=== PATIENT | female | born 1975 | race Caucasian/White ===

== ENCOUNTER 2017-06-22 15:34 | Observation (INO) ==
--- NOTE | 2017-06-22 19:33 | Emergency Department Note ---
Disposition Referrals: Carlitos Daniel MD [Primary Care Provider] - Forms: ED Satisfaction Letter General Adult HPI - General Chief complaint: ED Extremity Problem,Nontraumatic Stated complaint: Bilateral Legs Swollen and Painfull Time Seen by Provider: 06/22/17 19:10 Source: patient Limitations: no limitations - History of Present Illness Pain Scale: 9 - Related Data Allergies Allergy/AdvReac Type Severity Reaction Status Date / Time codeine AdvReac See Verified 06/22/17 16:28 Comments Past Medical History - Past Medical History Medical history: Reports: thyroid disease Psychiatric history: Reports: anxiety, depression - Social History Smoking Status: Never smoker Smokeless Tobacco Status: No Alcohol use: Reports: none Drug use: Reports: none Physical Exam - General Limitations: no limitations General appearance: alert Course Vital Signs Temperature 98.2 F 06/22/17 16:29 Pulse Rate 98 06/22/17 16:29 Respiratory Rate 20 06/22/17 16:29 Blood Pressure 137/84 06/22/17 16:29 O2 Sat by Pulse Oximetry 93 06/22/17 16:29 Temperature 98.2 F 06/22/17 16:29 Pulse Rate 98 06/22/17 16:29 Respiratory Rate 20 06/22/17 16:29 Blood Pressure 137/84 06/22/17 16:29 O2 Sat by Pulse Oximetry 93 06/22/17 16:29 Oxygen Delivery Oxygen Delivery Room Air
[2017-06-22 19:47] LABS: Basophils % 0.8 %; Eosinophils # 0.1 K/mcL (0.0-0.6); Hemoglobin 18.4 g/dL (11.5-15.4); Immature Granulocytes % 0.8 % (0-4); Immature Platelets 3.7 % (1.1-6.1); Lymphocytes # 1.2 K/mcL (0.6-4.6); Lymphocytes % 23.5 %; Mean Corpuscular HGB Conc 30.6 g/dL (31.6-35.5); Mean Corpuscular Hemoglobin 27.4 pg (28.0-33.3); Mean Corpuscular Volume 89.7 fL (83.0-100.0); Mean Platelet Volume 9.9 fL (9.4-12.4); Monocytes # 0.4 K/mcL (0.0-1.3); Monocytes % 7.4 %; Neutrophils # 3.3 K/mcL (1.6-8.9); Platelet Count 107 K/mcL (140-400); Red Blood Count 6.71 M/mcL (3.82-4.97); Red Cell Distribution Width 18.9 % (11.5-14.5); Segmented Neutrophils % 66.5 %
[2017-06-22 19:52] LABS: Hematocrit 60.2 % (35.3-44.9)
[2017-06-22 19:59] LABS: BUN/Creatinine Ratio 11 (6-26); Blood Urea Nitrogen 8 mg/dL (7-20); Calcium 9.2 mg/dL (8.6-10.8); Carbon Dioxide 28 mEq/L (19-29); Chloride 97 mEq/L (98-109); Glucose 164 mg/dL (70-99); Osmolality,Calculated 284 (280-300); Potassium 3.5 mEq/L (3.5-4.5); Sodium 136 mEq/L (136-145); eGFR For African Americans > 60 (> 60); eGFR For Non-African Americans > 60 (> 60)
[2017-06-22 20:05] LABS: Anisocytosis 1+ (Not Present); Macrocytosis Present (Not Present)
[2017-06-22 20:06] LABS: Large Platelets Present (Not Present); Platelet Estimate Decreased (Normal); Polychromasia 2+ (Not Present)
[2017-06-22] MEDS ORDERED: Vancomycin 1,500 MG in D5% in Water 250 ML IVPB ONE (20:23)
--- NOTE | 2017-06-22 22:32 | Emergency Department Note ---
Disposition Clinical Impression: Edema Qualifiers: Edema type: localized Qualified Code(s): R60.0 - Localized edema Disposition: Admitted As Inpatient Condition: Good Referrals: Carlitos Daniel MD [Primary Care Provider] - Forms: ED Satisfaction Letter General Adult HPI - General Chief complaint: ED Extremity Problem,Nontraumatic Stated complaint: Bilateral Legs Swollen and Painfull Time Seen by Provider: 06/22/17 19:10 Source: patient Limitations: no limitations Nursing Notes Reviewed: Yes Vital Signs Reviewed: Yes - History of Present Illness HPI Narrative: This is a 41-year-old female who presents with concern for lower extremity edema. She admits that she had a negative cardiac workup several weeks ago but now has worsening edema with redness. The redness started 2 days ago. She admits that she has increasing warmth to the touch. She has no lower extremity trauma. She has no history of renal insufficiency. She has no chest pain. Pain Scale: 9 - Related Data Allergies Allergy/AdvReac Type Severity Reaction Status Date / Time codeine AdvReac See Verified 06/22/17 16:28 Comments All systems ED: reviewed and negative except as stated. Past Medical History - Past Medical History Medical history: Reports: thyroid disease Psychiatric history: Reports: anxiety, depression - Social History Smoking Status: Never smoker Smokeless Tobacco Status: No Alcohol use: Reports: none Drug use: Reports: none Physical Exam Significant +2 peripheral edema on the lower extremities with erythema as well as warmth extending to the knee. - General Limitations: no limitations General appearance: alert - Head Head exam: atraumatic - Eye Eye exam: Present: normal appearance - ENT ENT exam: normal exam - Neck Neck exam: Present: normal inspection - Chest Chest inspection: Present: normal inspection - Respiratory Respiratory exam: Present: normal lung sounds bilaterally - Cardiovascular Cardiovascular exam: Present: regular rate, normal rhythm - Abdominal Exam Abdominal exam: Present: soft, Non-Tender - Expanded Lower Extremity Exam Hip/Pelvis exam: Present: normal inspection Upper leg exam: Present: normal inspection, full ROM Neurovascular/Tendon exam: Present: normal capillary refill. Absent: pulse deficit Gait: observed and normal - Back Exam Back exam: Present: normal inspection, full ROM - Neurological Exam Neurological exam: Present: alert, oriented X3, CN II-XII intact - Psychiatric Psychiatric exam: Present: normal affect, normal mood - Skin Skin exam: Present: warm, dry Course Vital Signs Temperature 98.2 F 06/22/17 16:29 Pulse Rate 98 06/22/17 16:29 Respiratory Rate 20 06/22/17 16:29 Blood Pressure 137/84 06/22/17 16:29 O2 Sat by Pulse Oximetry 93 06/22/17 16:29 Temperature 98.2 F 06/22/17 16:29 Pulse Rate 98 06/22/17 16:29 Respiratory Rate 20 06/22/17 16:29 Blood Pressure 137/84 06/22/17 16:29 O2 Sat by Pulse Oximetry 93 06/22/17 16:29 Oxygen Delivery Oxygen Delivery Room Air Medical Decision Making - MDM Narrative Medical decision making narrative: Duplex of the lower extremities show no evidence of DVT. She has no leukocytosis. She is afebrile. Her legs are concerning for possible cellulitis. I would empirically initiated therapy with vancomycin at this time. She has no systemic signs of inflammatory response syndrome. I would also evaluate her for possible PE. She does have pulmonary edema on chest x- ray however normal pro BNP and creatinine. I would like to exclude PE as a cause for these abnormal chest x-ray findings. The patient will be admitted to the hospital for further evaluation of cellulitis versus heart failure versus PE. CT scan shows possible chronic pulmonary embolism I will start heparin at this time pending more definitive imaging as inpatient. Continue treatment for possible cellulitis. - Medical Records Medical records reviewed: Yes I reviewed the patient's medical records. - Lab Data Lab results reviewed: Yes I reviewed the patient's lab results. Result diagrams: 06/22/17 19:34 06/22/17 19:34 Lab Results 06/22/17 06/22/17 06/22/17 Range/Units 19:34 19:34 19:34 WBC 5.0 (4.3-11.1) K/mcL RBC 6.71 H (3.82-4.97) M/mcL Hgb 18.4 H (11.5-15.4) g/dL Hct 60.2 H (35.3-44.9) % MCV 89.7 (83.0-100.0) fL MCH 27.4 L (28.0-33.3) pg MCHC 30.6 L (31.6-35.5) g/dL RDW 18.9 H (11.5-14.5) % Plt Count 107 L (140-400) K/mcL MPV 9.9 (9.4-12.4) fL Immature Gran % 0.8 (0-4) % Seg Neutrophils % 66.5 % Lymphocytes % 23.5 % Monocytes % 7.4 % Eosinophils % 1.0 % Basophils % 0.8 % Neutrophils # 3.3 (1.6-8.9) K/mcL Lymphocytes # 1.2 (0.6-4.6) K/mcL Monocytes # 0.4 (0.0-1.3) K/mcL Eosinophils # 0.1 (0.0-0.6) K/mcL Basophils # 0.0 (0.0-0.2) K/mcL Platelet Estimate Decreased L (Normal) Large Platelets Present A (Not Present) Immature Plt Fraction 3.7 (1.1-6.1) % Polychromasia 2+ A (Not Present) Anisocytosis 1+ A (Not Present) Macrocytosis Present A (Not Present) Sodium 136 (136-145) mEq/L Potassium 3.5 (3.5-4.5) mEq/L Chloride 97 L (98-109) mEq/L Carbon Dioxide 28 (19-29) mEq/L BUN 8 (7-20) mg/dL Creatinine 0.71 (0.57-1.11) mg/dL Est GFR ( Amer) > 60 (> 60) Est GFR (Non-Af Amer) > 60 (> 60) BUN/Creatinine Ratio 11 (6-26) Glucose 164 H (70-99) mg/dL Calculated Osmolality 284 (280-300) Lactic Acid 1.3 (0.5-2.2) mmol/L Calcium 9.2 (8.6-10.8) mg/dL Troponin I (0-0.03) ng/mL B-Natriuretic Peptide (0-100) pg/mL 06/22/17 06/22/17 Range/Units 19:34 19:34 WBC (4.3-11.1) K/mcL RBC (3.82-4.97) M/mcL Hgb (11.5-15.4) g/dL Hct (35.3-44.9) % MCV (83.0-100.0) fL MCH (28.0-33.3) pg MCHC (31.6-35.5) g/dL RDW (11.5-14.5) % Plt Count (140-400) K/mcL MPV (9.4-12.4) fL Immature Gran % (0-4) % Seg Neutrophils % % Lymphocytes % % Monocytes % % Eosinophils % % Basophils % % Neutrophils # (1.6-8.9) K/mcL Lymphocytes # (0.6-4.6) K/mcL Monocytes # (0.0-1.3) K/mcL Eosinophils # (0.0-0.6) K/mcL Basophils # (0.0-0.2) K/mcL Platelet Estimate (Normal) Large Platelets (Not Present) Immature Plt Fraction (1.1-6.1) % Polychromasia (Not Present) Anisocytosis (Not Present) Macrocytosis (Not Present) Sodium (136-145) mEq/L Potassium (3.5-4.5) mEq/L Chloride (98-109) mEq/L Carbon Dioxide (19-29) mEq/L BUN (7-20) mg/dL Creatinine (0.57-1.11) mg/dL Est GFR ( Amer) (> 60) Est GFR (Non-Af Amer) (> 60) BUN/Creatinine Ratio (6-26) Glucose (70-99) mg/dL Calculated Osmolality (280-300) Lactic Acid (0.5-2.2) mmol/L Calcium (8.6-10.8) mg/dL Troponin I 0.00 (0-0.03) ng/mL B-Natriuretic Peptide 22 (0-100) pg/mL
[2017-06-22] MEDS ORDERED: *HR* Heparin 5,000 UNIT/ML VIAL IVP PRN ×2 (22:53)
[2017-06-22] MEDS ORDERED: *HR* Heparin 5,000 UNIT/ML VIAL IVP ONE (22:53)
[2017-06-23 00:33] LABS: INR 1.3
[2017-06-23 00:36] LABS: Activated Partial Thrombo Time 27.9 Seconds (26.0-36.0)
[2017-06-23 00:48] LABS: Hemoglobin 17.7 g/dL (11.5-15.4); Mean Corpuscular HGB Conc 30.8 g/dL (31.6-35.5); Mean Corpuscular Hemoglobin 27.3 pg (28.0-33.3); Mean Corpuscular Volume 88.4 fL (83.0-100.0); Mean Platelet Volume 9.5 fL (9.4-12.4); Platelet Count 110 K/mcL (140-400); Red Blood Count 6.49 M/mcL (3.82-4.97); Red Cell Distribution Width 18.8 % (11.5-14.5)
[2017-06-23 00:49] LABS: Hematocrit 57.4 % (35.3-44.9)
[2017-06-23] MEDS ORDERED: 0.9 % Sodium Chloride 1,000 ML ONE (01:24)
[2017-06-23] MEDS: Heparin 25,000 UNIT/500 ML D5W 25,000 UNIT/500 ML MLS IVC SCH ×2 (01:37→12:59)
[2017-06-23] MEDS ORDERED: Acetaminophen 325 MG TABLET PO PRN (06:47)
[2017-06-23] MEDS ORDERED: Naloxone 0.4 MG/ML INJ IVP PRN (06:47)
[2017-06-23] MEDS ORDERED: *HR* Morphine 2 MG/ML SYRINGE IVP PRN (06:47)
[2017-06-23] MEDS ORDERED: Ondansetron 4 MG/2 ML VIAL IVP PRN (06:47)
[2017-06-23 07:48] LABS: Chol/HDL Ratio 6.6 (0-4.9); Magnesium 1.6 mg/dL (1.6-2.6)
[2017-06-23 07:49] LABS: BUN/Creatinine Ratio 10 (6-26); Blood Urea Nitrogen 7 mg/dL (7-20); Calcium 8.8 mg/dL (8.6-10.8); Carbon Dioxide 28 mEq/L (19-29); Chloride 97 mEq/L (98-109); Glucose 170 mg/dL (70-99); Osmolality,Calculated 288 (280-300); Potassium 3.5 mEq/L (3.5-4.5); Sodium 138 mEq/L (136-145); eGFR For African Americans > 60 (> 60); eGFR For Non-African Americans > 60 (> 60)
[2017-06-23] MEDS ORDERED: Albuterol Neb 0.63 MG/3 ML VIAL IH PRN (08:00)
[2017-06-23] MEDS ORDERED: Furosemide 40 MG/4 ML VIAL IVP SCH ×3 (08:00→17:00)
[2017-06-23] MEDS: Folic Acid 1 MG TABLET PO SCH (08:44)
[2017-06-23] MEDS ORDERED: Furosemide 40 MG TABLET PO SCH (09:00)
[2017-06-23] MEDS ORDERED: BREO ELLIPTA IH SCH (09:00)
[2017-06-23] MEDS ORDERED: (Biotin [Biotin] 5,000 MCG) PO SCH (09:00)
--- NOTE | 2017-06-23 09:34 | Internal Med History&Physical ---
Date of Encounter: 06/23/17 Time of Encounter: 09:10 Assessment and Plan (1) SIRS (systemic inflammatory response syndrome) Current visit: Yes Status: Acute Will admit the pt into Tele Meet SIRS criteria with low grade temp 100.0, elevated WBC, source of inf as cellulites started on empirical abx Ancef not a high risk for MRSA inf cont close monitoring (2) Cellulitis of leg Current visit: Yes Status: Acute see above Qualifiers: Qualified Code(s): L03.119 - Cellulitis of unspecified part of limb (3) Bilateral lower extremity edema Current visit: Yes Status: Acute ruled out DVT Venous doppler negative Mostly dependent edema and cellulities induced too BNP - WNL -- however with her CXR findings and b/l LE edema -- concern for CHF exacerbation too Will obtain her recent 2 D Echo from PCP office No need to repeat another Echo now cont gentle diuresis (4) Chronic pulmonary embolism Current visit: Yes Status: Acute does not look like acute she had symptoms for almost 2 months looks non provocative may need 3-6 months of rx cont heparin gtt for now Talked to pharmacy to check her insurance see if she qualifies for Eliquis / Xarelto will get 2 D Echo from PCP office Qualifiers: Qualified Code(s): I27.82 - Chronic pulmonary embolism (5) Obesities, morbid Current visit: Yes Status: Acute counseled to loose weight (6) Mild intermittent asthma Current visit: Yes Status: Chronic stable.. not in exacerbation Qualifiers: Qualified Code(s): J45.20 - Mild intermittent asthma, uncomplicated (7) Hypothyroid Current visit: Yes Status: Chronic resumed home meds Qualifiers: Hypothyroidism type: acquired Qualified Code(s): E03.9 - Hypothyroidism, unspecified (8) DONYA (obstructive sleep apnea) Current visit: Yes Status: Acute counseled to go for out pt sleep study Internal Medicine - H&P: HPI Chief complaint: b/l LE swelling and SOB Admitted From: Emergency Dept Plans for Post Hospital Care: Home History of present illness: This is a 41-year-old female with PMH of DONYA, Morbid obesity, HTN, Asthma, hypothyroidism pt who has been having SOB for a couple of months, for which shed followed with PCP and [employer] as an out pt. She did mention having a full cardiac work up 2 months ago including 2 D Echo, which were normal. Now she presented to out ER with concern for lower extremity edema and erythema started 2 days ago. She admits that she has increasing warmth to the touch. She has no lower extremity trauma. She has no history of renal insufficiency. She has no chest pain. Past Med Surg Social Fam HX - Past Medical History Medical history: asthma, thyroid disease, other Psychiatric history: anxiety, depression - Past Surgical History Surgical History: - Social History Smoking Status: Former smoker Smokeless Tobacco Status: No Alcohol use: none Drug use: none - Family History Mother Age: 70 Living Status: Still Living Hx Family Cancer: Yes Hx Family Endocrine Disorder: Yes (Thyroid) Father Age: 75 Living Status: Still Living Hx Family Cardiac Disorders: Yes Hx Family Endocrine Disorder: Yes (DM) - Additional Family History Additional family history: Mother had PE after Rt shoulder repair Internal Medicine - H&P: Meds Albuterol Sulfate [Ventolin Hfa] 1 puff IH Q6H PRN 06/23/17 [History] Biotin 5,000 mcg PO DAILY 06/23/17 [History] Ergocalciferol (VITAMIN D2) [Vitamin D2] 50,000 unit PO QWEEK 06/23/17 [History] Ferrous Sulfate [Iron] 325 mg PO TID 06/23/17 [History] Fluticasone/Vilanterol [Breo Ellipta 200-25 Mcg INH] 1 puff IH DAILY 06/23/17 [ History] Folic Acid 400 mcg PO DAILY 06/23/17 [History] Furosemide [Lasix] 40 mg PO DAILY 06/23/17 [History] Levothyroxine Sodium [Synthroid] 200 mcg PO DAILY 06/23/17 [History] Multivitamin [One Daily Essential] PO DAILY 06/23/17 [History] 3 Allergy/AdvReac Type Severity Reaction Status Date / Time codeine AdvReac See Verified 06/22/17 16:28 Comments All Systems PM: A 10-system review of systems was performed and is negative for pertinent findings except as documented above in the HPI. Review of systems: Reviwed all the systems everything is benign except the systems and symptoms I mentioned in HPI - Constitutional Vitals: Temp Pulse Resp BP Pulse Ox 98.4 F 105 20 136/83 92 06/23/17 07:05 06/23/17 07:05 06/23/17 07:05 06/23/17 07:05 06/23/17 07:05 General appearance: Present: A&O X 3, morbidly obese, no acute distress, answers questions appropriately - Head Head exam: Present: atraumatic, normal inspection - Respiratory Respiratory exam: Present: decreased breath sounds. Absent: rales, respiratory distress, rhonchi, wheezes - Cardiovascular Cardiovascular exam: Present: RRR, +S1, +S2. Absent: systolic murmur - GI/Abdominal GI/Abdominal exam: Present: soft, no peritoneal signs. Absent: distended, tenderness - Extremities Exam Extremities exam: Present: pedal edema (2+). Absent: calf tenderness, tenderness Additional comments: Erythema extending from ankle to proximal 1/3 of both legs .. Warm to touch.. Non tender. No open wounds / ulcers - Back Exam Back exam: Absent: CVA tenderness (L), CVA tenderness (R) - Neurological Exam Neurological exam: Present: alert, oriented X3 - Psychiatric Psychiatric exam: Present: normal affect, normal mood Internal Med - H&P Results - Labs CBC & Chem 7: 06/23/17 00:21 06/23/17 07:03 Labs: Short CBC 06/23/17 Range/Units 00:21 WBC 5.4 (4.3-11.1) K/mcL Hgb 17.7 H (11.5-15.4) g/dL Hct 57.4 H (35.3-44.9) % Plt Count 110 L (140-400) K/mcL BMP 06/23/17 07:03 Sodium 138 Potassium 3.5 Chloride 97 L Carbon Dioxide 28 BUN 7 Creatinine 0.72 Glucose 170 H Calcium 8.8 Cardiac Enzymes 06/23/17 Range/Units 07:03 Troponin I 0.00 (0-0.03) ng/mL
[2017-06-23] MEDS: ceFAZolin 1,000 MG in D5% in Water (Mini-Bag+) 100 ML IVPB SCH ×2 (10:34→16:46)
[2017-06-23] MEDS ORDERED: *HR* Rivaroxaban 15 MG TABLET PO SCH (15:25)
[2017-06-23] MEDS ORDERED: *HR* Dextrose 50 % in Water (Syg) 50 ML SYRINGE IVP PRN (15:48)
[2017-06-23] MEDS ORDERED: Dextrose Gel 15 GM PO PRN ×2 (15:48)
[2017-06-23] MEDS ORDERED: D5% in Water 1,000 ML IVC PRN (15:48)
--- NOTE | 2017-06-23 15:56 | Pulmonology Consult Note ---
Date of Encounter: 06/23/17 Time of Encounter: 15:51 Assessment and Plan (1) Chronic respiratory failure with hypoxia Current Visit: Yes Status: Acute I suspect this is related to chronic untreated obstructive sleep apnea complicated by obesity hypoventilation syndrome and asthma. Recommend obtaining arterial blood gas on room air as well as echocardiogram is ordered hopefully this can be done with bubble study. Supplemental oxygen at all times to keep saturation greater than 88% (2) Pulmonary hypertension Current Visit: Yes Status: Acute There is radiographic evidence of pulmonary hypertension recommend screening echocardiogram as next step in this evaluation. I suspect these findings are most likely related to WHO group 3 disease that is owing to chronic hypoxia related to pulmonary cause. She is at increased risk for developing group 1 disease that is pulmonary arteriolar hypertension. Not exclude possibility group for disease chronic thromboembolic pulmonary hypertension although no clear evidence at this time. I will order a VQ scan to further eliminate possibility of chronic thromboembolic pulmonary hypertension (3) Dyspnea Current Visit: Yes Status: Acute Is multifactorial and related to above findings Qualifiers: Dyspnea type: unspecified Qualified Code(s): R06.00 - Dyspnea, unspecified (4) DONYA (obstructive sleep apnea) Current Visit: Yes Status: Acute He is set up to start positive airway pressure therapy with her next week and I encouraged her to follow up with this appointment it is reasonable to start empiric CPAP at night while inpatient avoid sedatives at bedtime and IV narcotics/anxiolytics as possible (5) Mild intermittent asthma Current Visit: Yes Status: Chronic Does not have acute flare of asthma chronic treatment which is appropriately managed at present I would continue bronchodilators in the form of albuterol on a as needed basis and she can return to taking her metered-dose inhaler of inhaled corticosteroid and long-acting beta agonists at the time of discharge Qualifiers: Asthma complication type: uncomplicated Qualified Code(s): J45.20 - Mild intermittent asthma, uncomplicated (6) Obesity with alveolar hypoventilation Current Visit: Yes Status: Acute She does have evidence of chronic CO2 retention this should improve with use of positive airway pressure and hopefully weight loss on a long-term strategy basis Qualifiers: Qualified Code(s): E66.2 - Morbid (severe) obesity with alveolar hypoventilation (7) Polycythemia Current Visit: Yes Status: Acute I suspect this is secondary polycythemia related to chronic untreated hypoxemia. This is not correct with treatment of her underlying hypoxemia that she would need follow-up with hematology for further evaluation (8) Venous thromboembolism (VTE) not present on admission Current Visit: Yes Status: Acute I do not see a clear diagnosis of acute or chronic thromboembolic disease and as such I do not recommend empiric use of anticoagulation I discussed my observation and recommendations directly with the primary medicine attending Dr. Solo. If Further concern exist about lower extremity DVT recommended obtaining additional imaging studies in the form of a lower extremity duplex History of Present Illness Consult date: 06/23/17 Requesting physician: Rogelio Solo Reason for consult: dyspnea, pulmonary embolism Chief complaint: Shortness of Breath History of present illness: This is a pleasant 41-year-old woman with past medical history of super morbid obesity former smoker who quit 10 years ago about a pack a day for 15 years mild persistent asthma treated with metered-dose inhalers recent diagnosis of obstructive sleep apnea but has not started CPAP therapy presented with worsening shortness of breath lower extremity edema and erythema along with redness and pain. She has been complaining of increased shortness of breath worse over the last couple of months and on admission a CT angiogram of her chest was performed which was not suggestive of acute PE there is some findings that were consistent with mosaic attenuation and a small lung nodule. She had a borderline enlarged pulmonary artery which can be seen in pulmonary arteriolar hypertension and some of the changes on the CAT scan at least from initial radiologist's interpretation may have suggested chronic thromboembolic pulmonary hypertension and thus the patient was started empirically on anticoagulation there is no mention that the patient has ever had acute PE or chronic VTE of any form and recently had a lower STEMI duplex prior to ut 2 weeks ago which was negative for DVT. As part of evaluation over the last 2 months she has been seen by cardiology at outside hospital and undergone a cardiac stress test which was negative for inducible ischemia she was noted by cardiology at that time to need oxygen and was started on supplement oxygen by an outside hospital area development manager at the same time he ordered a sleep study. Apparently at the sleep Center that was performed showed that she desaturated into the 40s during sleep although she is not started positive airway pressure therapy as of yet that is is scheduled to be completed within the next week. She has worked in clerical jobs; she does scarpbooking for a hobbies and has no industrial or environmental exposures has never taken [id number] dietary supplements and does not use alcohol excessively denies illicit drug Past Med Surg Social Fam HX - Past Medical History Medical history: asthma, thyroid disease, other Psychiatric history: anxiety, depression - Past Surgical History Surgical History: - Social History Smoking Status: Former smoker Smokeless Tobacco Status: No Alcohol use: none Drug use: none - Family History Mother Age: 70 Living Status: Still Living Hx Family Cancer: Yes Hx Family Endocrine Disorder: Yes (Thyroid) Father Age: 75 Living Status: Still Living Hx Family Cardiac Disorders: Yes Hx Family Endocrine Disorder: Yes (DM) Medications and Allergies Albuterol Sulfate [Ventolin Hfa] 1 puff IH Q6H PRN 06/23/17 [History] Biotin 5,000 mcg PO DAILY 06/23/17 [History] Ergocalciferol (VITAMIN D2) [Vitamin D2] 50,000 unit PO QWEEK 06/23/17 [History] Ferrous Sulfate [Iron] 325 mg PO TID 06/23/17 [History] Fluticasone/Vilanterol [Breo Ellipta 200-25 Mcg INH] 1 puff IH DAILY 06/23/17 [ History] Folic Acid 400 mcg PO DAILY 06/23/17 [History] Furosemide [Lasix] 40 mg PO DAILY 06/23/17 [History] Levothyroxine Sodium [Synthroid] 200 mcg PO DAILY 06/23/17 [History] Multivitamin [One Daily Essential] PO DAILY 06/23/17 [History] 3 Allergy/AdvReac Type Severity Reaction Status Date / Time codeine AdvReac See Verified 06/22/17 16:28 Comments All Systems: A 10-system review of systems was performed and is negative for pertinent findings except as documented above in the HPI. Physical Examination Vital Signs: Vital Signs, Last 4 Hours Temp Pulse Resp BP Pulse Ox 06/23/17 15:39 98.4 F 93 20 117/75 92 General appearance: no acute distress Eyes: nonicteric ENT: oropharynx moist Neck: supple Auscultation: bilateral: clear Cardiovascular: regular rate and rhythm Gastrointestinal: normoactive bowel sounds Integumentary: erythema, cellulitis Extremities: no edema, no clubbing, pink and warm Musculoskeletal: no deformities normal mental status, non-focal exam, pupils equal and round anxious Results - Laboratory Findings CBC and BMP: 06/23/17 00:21 06/23/17 07:03 PT/INR, D-dimer PT 14.0 Seconds (9.4-12.1) H 06/23/17 00:21 Abnormal lab findings: Abnormal lab results RBC 6.49 M/mcL (3.82-4.97) H 06/23/17 00:21 Hgb 17.7 g/dL (11.5-15.4) H 06/23/17 00:21 Hct 57.4 % (35.3-44.9) H 06/23/17 00:21 MCH 27.3 pg (28.0-33.3) L 06/23/17 00:21 MCHC 30.8 g/dL (31.6-35.5) L 06/23/17 00:21 RDW 18.8 % (11.5-14.5) H 06/23/17 00:21 Plt Count 110 K/mcL (140-400) L 06/23/17 00:21 Platelet Estimate Decreased (Normal) L 06/22/17 19:34 Large Platelets Present (Not Present) A 06/22/17 19:34 Polychromasia 2+ (Not Present) A 06/22/17 19:34 Anisocytosis 1+ (Not Present) A 06/22/17 19:34 Macrocytosis Present (Not Present) A 06/22/17 19:34 PT 14.0 Seconds (9.4-12.1) H 06/23/17 00:21 APTT 67.1 Seconds (26.0-36.0) H D 06/23/17 09:10 Chloride 97 mEq/L (98-109) L 06/23/17 07:03 Glucose 170 mg/dL (70-99) H 06/23/17 07:03 HDL Cholesterol 19 mg/dL (40-59) L 06/23/17 07:03 Cholesterol/HDL Ratio 6.6 (0-4.9) H 06/23/17 07:03 - Diagnostic Findings Chest x-ray: report reviewed, image reviewed CT scan - chest: report reviewed, image reviewed - Clinical Findings Intake & Output: Intake & Output 06/22/17 06/23/17 06/23/17 23:59 07:59 15:59 Intake Total 980.0 / 980.0 Balance 980.0 / 980.0 Consult Discharge Plan - Plan Referrals: Carlitos Daniel MD [Primary Care Provider] -
[2017-06-23] MEDS ORDERED: Insulin LISPRO 300 UNITS/3 ML VIAL SQ SCH ×2 (16:30)
[2017-06-23] MEDS: *HR* Rivaroxaban 15 MG TABLET PO SCH (16:48)
[2017-06-23] MEDS: Insulin LISPRO 300 UNITS/3 ML VIAL SQ SCH ×2 (16:48→20:36)
[2017-06-23 17:18] LABS: ABG Base Excess 10.3 mEq/L (-2.0 to 3.0); ABG HCO3 37 mEq/L (21-27); ABG Oxygen Saturation 87 % (95-98); ABG PCO2 55 mmHg (35-45); ABG PH 7.44 pH Units (7.32-7.45); ABG PO2 51 mmHg (85-104); ABG TCO2 39.1 mEq/L (20-26)
[2017-06-23 17:28] LABS: Blood Gas FiO2 21 %
[2017-06-23] MEDS ORDERED: Perflutren Lipid Microsphere 1.3 ML in 0.9 % Sodium Chloride 8.7 ML IVP ONE (17:54)
[2017-06-23] MEDS ORDERED: Famotidine 20 MG/2 ML VIAL IVP SCH (18:00)
--- NOTE | 2017-06-23 18:23 | Electrocardiograph Report ---
[address] [place], [place] [address] Test Date: 2017-06-22 Pat Name: Debra López Department: 103 Room: 2A43 Gender: F Design [employer]inter [employer]: : 1975 Requested By: Dion Mendoza Order Number: [id number] Reading MD: Dominique Coughlin Measurements Intervals [place] Rate: 103 P: 39 CO: 158 QRS: 250 QRSD: 90 T: 31 QT: 335 QTc: 395 Interpretive Statements SINUS TACHYCARDIA NONSPECIFIC ST-T ABNORMALITIES Electronically Signed On 06-23-2017 18:21:56 EDT by Dominique Coughlin
[2017-06-23] MEDS: Budesonide/Formoterol 160/4.5 MDI IH SCH (22:19)
[2017-06-24] MEDS: ceFAZolin 1,000 MG in D5% in Water (Mini-Bag+) 100 ML IVPB SCH ×3 (01:11→17:07)
[2017-06-24] MEDS: *HR* Rivaroxaban 15 MG TABLET PO SCH ×2 (05:59→17:07)
[2017-06-24 06:46] LABS: BUN/Creatinine Ratio 11 (6-26); Blood Urea Nitrogen 8 mg/dL (7-20); Calcium 8.8 mg/dL (8.6-10.8); Carbon Dioxide 31 mEq/L (19-29); Chloride 94 mEq/L (98-109); Glucose 162 mg/dL (70-99); Magnesium 1.8 mg/dL (1.6-2.6); Osmolality,Calculated 286 (280-300); Potassium 3.8 mEq/L (3.5-4.5); Sodium 137 mEq/L (136-145); eGFR For African Americans > 60 (> 60); eGFR For Non-African Americans > 60 (> 60)
[2017-06-24 07:02] LABS: Basophils % 0.8 %; Eosinophils # 0.2 K/mcL (0.0-0.6); Eosinophils % 3.7 %; Hemoglobin 17.6 g/dL (11.5-15.4); Immature Granulocytes % 0.6 % (0-4); Lymphocytes # 0.8 K/mcL (0.6-4.6); Lymphocytes % 16.4 %; Mean Corpuscular HGB Conc 29.9 g/dL (31.6-35.5); Mean Corpuscular Hemoglobin 27.1 pg (28.0-33.3); Mean Corpuscular Volume 90.8 fL (83.0-100.0); Mean Platelet Volume 9.7 fL (9.4-12.4); Monocytes # 0.4 K/mcL (0.0-1.3); Neutrophils # 3.6 K/mcL (1.6-8.9); Platelet Count 111 K/mcL (140-400); Red Blood Count 6.49 M/mcL (3.82-4.97); Red Cell Distribution Width 19.3 % (11.5-14.5); Segmented Neutrophils % 70.5 %
--- NOTE | 2017-06-24 07:11 | Venous Imaging Report ---
LE Venous Duplex Patient Name:Debra López Order Number:[id number] Procedure Date:06/22/2017 Date:1975Age:41 yrs Gender:Female Location:[facility] ED Room #: ER15 Picker / Packer:Deedee Gonzales, MIRTHA, RVT Referring MD:Brendan Bullard DO Reading MD:Arie Hernández MD Primary Indications:Swelling of limb Secondary Indications: Impressions: Bilateral lower extremity: normal superficial and deep exam. Recommendations: Preliminary given to Dr Bullard in ED. Findings Venous Duplex Results: Right: Venous imaging of the lower extremity reveals full patency and normal vessel compressibility of the right distal iliac, right common femoral, right superficial femoral, right popliteal, right posterior tibial, right peroneal, right great saphenous and right lesser saphenous. Doppler signals in the evaluated veins were normal. Left: Venous imaging of the lower extremity reveals full patency and normal vessel compressibility of the left distal iliac, left common femoral, left superficial femoral, left popliteal, left posterior tibial, left peroneal, left great saphenous and left lesser saphenous. Doppler signals in the evaluated veins were normal. Prior Study: No prior study available for comparison. Lower Extremity Venous Duplex Side Vein Compress Spontaneous Flow Augment Diameter (cm) Depth (cm) Right Distal Iliac Normal Yes Phasic Yes Right Common Femoral Normal Yes Phasic Yes Right Superficial Femoral Normal Yes Phasic Yes Right Popliteal Normal Yes Phasic Yes Right Posterior Tibial Normal Yes Phasic Yes Right Peroneal Normal Yes Phasic Yes Right Great Saphenous Normal Yes Phasic Yes Right Lesser Saphenous Normal Yes Phasic Yes Left Distal Iliac Normal Yes Phasic Yes Left Common Femoral Normal Yes Phasic Yes Left Superficial Femoral Normal Yes Phasic Yes Left Popliteal Normal Yes Phasic Yes Left Posterior Tibial Normal Yes Phasic Yes Left Peroneal Normal Yes Phasic Yes Left Great Saphenous Normal Yes Phasic Yes Left Lesser Saphenous Normal Yes Phasic Yes Upper Extremity Venous Duplex Side Vein Compress Spontaneous Flow Augment Right Jugular Normal Yes Phasic Yes Right Subclavian Normal Yes Phasic Yes Right Axillary Normal Yes Phasic Yes Right Brachial Normal Yes Phasic Yes Right Cephalic Normal Yes Phasic Yes Right Basilic Normal Yes Phasic Yes Right Radial Normal Yes Phasic Yes Right Ulnar Normal Yes Phasic Yes Left Jugular Normal Yes Phasic Yes Left Subclavian Normal Yes Phasic Yes Left Axillary Normal Yes Phasic Yes Left Brachial Normal Yes Phasic Yes Left Cephalic Normal Yes Phasic Yes Left Basilic Normal Yes Phasic Yes Left Radial Normal Yes Phasic Yes Left Ulnar Normal Yes Phasic Yes Updated by Arie Hernández MD on 06/24/2017 7:03:20 AM electronically signed on 06/24/2017 7:03:31 AM with status of Final
[2017-06-24 08:01] LABS: Hematocrit 58.9 % (35.3-44.9)
[2017-06-24] MEDS: Folic Acid 1 MG TABLET PO SCH (08:10)
[2017-06-24] MEDS ORDERED: Furosemide 40 MG/4 ML VIAL IVP SCH (08:10)
[2017-06-24] MEDS: Insulin LISPRO 300 UNITS/3 ML VIAL SQ SCH ×4 (08:11→21:07)
--- NOTE | 2017-06-24 08:14 | Internal Med Progress Note ---
<Edwin Riddle - Last Filed: 06/24/17 16:16> Date of Encounter: 06/24/17 Time of Encounter: 08:11 - Assessment and plan (1) Chronic respiratory failure with hypoxia Current Visit: Yes Status: Acute Assessment and plan: Related to underlying pulmonary hypertension, as well as obesity hypoventilation syndrome and likely DONYA. Patient is maintaining her saturation above 88% on 3 L. We will institute CPAP overnight. We will continuously monitor oxygen overnight on CPAP. (2) Pulmonary hypertension Current Visit: Yes Status: Acute Assessment and plan: Evidence of dilated pulmonary artery on CT scan. Echo was unable to estimate RVSP, however the right ventricle was mildly moderately dilated. Cause unknown at this time. Likely either 3 related to obesity hypoventilation syndrome or DONYA or possibly group with chronic thromboembolic disease. We will attempt to obtain a VQ scan however the patient does have difficulty lying flat. She will follow-up with pulmonology as an outpatient. Continue supplemental oxygen. Continue IV diuresis. (3) Obesity with alveolar hypoventilation Current Visit: Yes Status: Acute Assessment and plan: We will institute CPAP at night. The patient has been diagnosed with DONYA and has formal outpatient CPAP titration scheduled for next week. We will use CPAP with continuous O2 monitoring. Qualifiers: Obesity classification: adult class 3 (BMI >= 40) Serious obesity comorbidity presence: unspecified whether serious comorbidity present Body mass index: BMI 50.0-59.9 Qualified Code(s): E66.2 - Morbid (severe) obesity with alveolar hypoventilation; Z68.43 - Body mass index (BMI) 50-59.9 , adult (4) Polycythemia Current Visit: Yes Status: Acute Assessment and plan: Mild, stable, possibly caused by chronic hypoxia. Continue to monitor. (5) Cellulitis of leg Current Visit: Yes Status: Acute Assessment and plan: Bilateral. Likely component of edema as well. Continue Ancef. Qualifiers: Laterality: unspecified laterality Qualified Code(s): L03.119 - Cellulitis of unspecified part of limb (6) Hypothyroid Current Visit: Yes Status: Chronic Assessment and plan: Stable. Continue Synthroid. Qualifiers: Hypothyroidism type: acquired Qualified Code(s): E03.9 - Hypothyroidism, unspecified - Subjective Interval history: Patient seen and examined at bedside. She reports she is mildly short of breath but this is stable. She states the swelling in her legs is what is giving her the most difficultly and it is causing problems with her walking. She denies chest pain, cough. - Constitutional Vitals: Temp Pulse Resp BP Pulse Ox 98.4 F 107 20 143/71 93 06/24/17 07:33 06/24/17 07:33 06/24/17 07:33 06/24/17 07:33 06/24/17 07:33 General appearance: Present: A&O X 3, morbidly obese, no acute distress, answers questions appropriately - Respiratory Respiratory exam: Present: decreased breath sounds. Absent: rales, rhonchi, wheezes - Cardiovascular Cardiovascular exam: Present: RRR. Absent: gallop, rubs, systolic murmur - GI/Abdominal GI/Abdominal exam: Present: normal bowel sounds, soft. Absent: distended, tenderness - Extremities Exam Extremities exam: Present: pedal edema (trace), warm. Absent: tenderness Additional comments: Patient has trace lower extremity pitting edema. There is significant non pitting edema bilaterally with erythema from the ankle to the knee. Ankle to knee is warm to touch - Neurological Exam Neurological exam: Present: alert, CN II-XII intact, oriented X3, no focal deficits Internal Medicine: Result - Labs CBC & Chem 7: 06/24/17 06:26 06/24/17 06:26 Labs: Short CBC 06/24/17 Range/Units 06:26 WBC 5.1 (4.3-11.1) K/mcL Hgb 17.6 H (11.5-15.4) g/dL Hct 58.9 H (35.3-44.9) % Plt Count 111 L (140-400) K/mcL Neutrophils # 3.6 (1.6-8.9) K/mcL BMP 06/24/17 06:26 Sodium 137 Potassium 3.8 Chloride 94 L Carbon Dioxide 31 H BUN 8 Creatinine 0.73 Glucose 162 H Calcium 8.8 Cardiac Enzymes 06/23/17 06/23/17 Range/Units 13:37 18:56 Troponin I 0.00 0.00 (0-0.03) ng/mL - ABG Interpretation ABG results: ABG ABG pH 7.44 pH Units (7.32-7.45) 06/23/17 17:10 ABG pCO2 55 mmHg (35-45) H 06/23/17 17:10 ABG pO2 51 mmHg (85-104) L 06/23/17 17:10 ABG O2 Saturation 87 % (95-98) L 06/23/17 17:10 PT/INR, D-dimer PT TNP 06/24/17 06:26 Consult Discharge Plan - Plan Referrals: Carlitos Daniel MD [Primary Care Provider] - 07/17/17 10:00 am (Please follow up with your primary care provider) <Catracho Armendariz P - Last Filed: 06/24/17 17:43> Date of Encounter: 06/24/17 - Constitutional Vitals: Temp Pulse Resp BP Pulse Ox 98.0 F 92 16 135/77 94 06/24/17 16:01 06/24/17 16:01 06/24/17 16:01 06/24/17 16:01 06/24/17 16:01 Internal Medicine: Result - Labs CBC & Chem 7: 06/24/17 06:26 06/24/17 06:26 Labs: Short CBC 06/24/17 Range/Units 06:26 WBC 5.1 (4.3-11.1) K/mcL Hgb 17.6 H (11.5-15.4) g/dL Hct 58.9 H (35.3-44.9) % Plt Count 111 L (140-400) K/mcL Neutrophils # 3.6 (1.6-8.9) K/mcL BMP 06/24/17 06:26 Sodium 137 Potassium 3.8 Chloride 94 L Carbon Dioxide 31 H BUN 8 Creatinine 0.73 Glucose 162 H Calcium 8.8 Cardiac Enzymes 06/23/17 Range/Units 18:56 Troponin I 0.00 (0-0.03) ng/mL - ABG Interpretation ABG results: ABG ABG pH 7.44 pH Units (7.32-7.45) 06/23/17 17:10 ABG pCO2 55 mmHg (35-45) H 06/23/17 17:10 ABG pO2 51 mmHg (85-104) L 06/23/17 17:10 ABG O2 Saturation 87 % (95-98) L 06/23/17 17:10 PT/INR, D-dimer PT 19.4 Seconds (9.4-12.1) H 06/24/17 09:38 - Impressions Impressions Echocardiogram 06/23/17 06:46 Impressions: LVEF 65%. Normal LV chamber size, wall thickness and function. Mild left ventricular diastolic dysfunction. Grossly, mild to moderately dilated right ventricle with normal function. Grossly, moderately dilated right atrium. Unable to estimate RVSP due to lack of TR jet. No obvious significant valvular dysfunction. Left Ventricular Wall Motion: Rest Echo Findings All wall segments showed normal motion. Findings: Study Quality * Technically sub-optimal due to body habitus. ECG Findings * Normal sinus rhythm. Left Ventricle * LVEF 65%. * Normal LV chamber size, wall thickness and function. * Mild left ventricular diastolic dysfunction. Right Ventricle * Grossly, mild to moderately dilated right ventricle with normal function. Left Atrium * Mildly dilated left atrium. Right Atrium * Grossly, moderately dilated right atrium. Interatrial Septum * Interatrial septum not well evaluated. Aortic Valve * Aortic valve not well visualized. * No aortic regurgitation. * No aortic stenosis. Mitral Valve * Normal mitral valve structure and function. * No mitral regurgitation. * No mitral stenosis. Tricuspid Valve * Normal tricuspid valve structure and function. * No tricuspid regurgitation. * Unable to estimate RVSP due to lack of TR jet. Pulmonic Valve * Pulmonic valve not well visualized. * No pulmonic regurgitation. Aorta * Normally sized aortic root. Pericardium * The pericardium appears normal. IVC * The IVC is not well evaluated. Pulmonary Artery * Normal visualized portions of the main pulmonary artery. - Attending Attestation I examined this patient and my medical decision-making was reviewed with the Resident Physician. I agree with the documented findings, disposition and treatment plan as described except to the extent set forth below.
[2017-06-24] MEDS: Furosemide 40 MG/4 ML VIAL IVP SCH ×2 (08:29→17:06)
[2017-06-24 10:01] LABS: INR 1.8; Prothrombin Time 19.4 Seconds (9.4-12.1)
[2017-06-24] MEDS: Budesonide/Formoterol 160/4.5 MDI IH SCH ×2 (10:13→20:45)
--- NOTE | 2017-06-24 10:40 | Pulmonology Progress Note ---
Date of Encounter: 06/24/17 Time of Encounter: 10:40 Assessment and Plan (1) Chronic respiratory failure with hypoxia Current Visit: Yes Status: Acute This is a 41-year-old woman with chronic hypoxemic respiratory failure which is multifactorial including untreated obstructive sleep apnea persistent asthma and morbid obesity with obesity hypoventilation syndrome. There is evidence of increased right sided pressures without ventricular dysfunction this is likely related to her untreated hypoxemia. There is a mosaic attenuation that is noted within her CT scan that is nonspecific but may point to an underlying interstitial pneumonitis or more likely small airways disease. She is also suffering from significant lower extremity lymphadenopathy and possible cellulitis for which she is being treated with antimicrobials. Recs: Empiric positive airway pressure (APAP 4-12) with oxygen bleed to keep saturation greater than 88% I would reorder VQ scan when patient more awake and able to cooperate with examination Agree with ongoing diuresis with daily monitoring of electrolytes and renal function and strict intake and output Bronchodilators as needed patient could restart her home meter dose inhaler ( Breo) She will need outpatient high-resolution CT scan to further characterize lung parenchyma changes Chemical DVT prophylaxis while inpatient Treatment of bilateral lymphadenopathy and cellulitis per primary medicine service could consider wrapping of lower extremities once treatment for cellulitis has been deemed sufficient I updated the housestaff directly with my recommendations (Dr. Pace) (2) Pulmonary hypertension Current Visit: Yes Status: Acute (3) Dyspnea Current Visit: Yes Status: Acute Qualifiers: Dyspnea type: unspecified Qualified Code(s): R06.00 - Dyspnea, unspecified (4) DONYA (obstructive sleep apnea) Current Visit: Yes Status: Acute (5) Mild intermittent asthma Current Visit: Yes Status: Chronic Qualifiers: Asthma complication type: uncomplicated Qualified Code(s): J45.20 - Mild intermittent asthma, uncomplicated (6) Obesity with alveolar hypoventilation Current Visit: Yes Status: Acute Qualifiers: Body mass index: unspecified BMI Qualified Code(s): E66.2 - Morbid (severe ) obesity with alveolar hypoventilation (7) Polycythemia Current Visit: Yes Status: Acute (8) Venous thromboembolism (VTE) not present on admission Current Visit: Yes Status: Acute Subjective Principal diagnosis: Lower extremity edema Interval history: She is still in excruciating pain from her lower extremities which are still red appearing and warm to the touch. She was awoken early this morning for transport to the ventilation perfusion scan and she felt disoriented and did not feel like she could lay flat and thus the scan was canceled she feels that although it is difficult for her to lay flat in general she would be able to complete this test if done in a time when she was more awake and able to cooperate. Objective PUL Vital signs: Last Vital Signs Temp 98.4 F 06/24/17 07:33 Pulse 107 06/24/17 07:33 Resp 18 06/24/17 10:13 BP 143/71 06/24/17 07:33 Pulse Ox 96 06/24/17 10:13 General appearance: no acute distress ENT: oropharynx moist Auscultation: bilateral: clear Cardiovascular: regular rate and rhythm Gastrointestinal: normoactive bowel sounds Integumentary: cellulitis Extremities: edema Results - Laboratory Findings CBC and BMP: 06/24/17 06:26 06/24/17 06:26 ABG ABG pH 7.44 pH Units (7.32-7.45) 06/23/17 17:10 ABG pCO2 55 mmHg (35-45) H 06/23/17 17:10 ABG pO2 51 mmHg (85-104) L 06/23/17 17:10 ABG O2 Saturation 87 % (95-98) L 06/23/17 17:10 PT/INR, D-dimer PT 19.4 Seconds (9.4-12.1) H 06/24/17 09:38 Abnormal lab findings: Abnormal lab results RBC 6.49 M/mcL (3.82-4.97) H 06/24/17 06:26 Hgb 17.6 g/dL (11.5-15.4) H 06/24/17 06:26 Hct 58.9 % (35.3-44.9) H 06/24/17 06:26 MCH 27.1 pg (28.0-33.3) L 06/24/17 06:26 MCHC 29.9 g/dL (31.6-35.5) L 06/24/17 06:26 RDW 19.3 % (11.5-14.5) H 06/24/17 06:26 Plt Count 111 K/mcL (140-400) L 06/24/17 06:26 Platelet Estimate Decreased (Normal) L 06/22/17 19:34 Large Platelets Present (Not Present) A 06/22/17 19:34 Polychromasia 2+ (Not Present) A 06/22/17 19:34 Anisocytosis 1+ (Not Present) A 06/22/17 19:34 Macrocytosis Present (Not Present) A 06/22/17 19:34 PT 19.4 Seconds (9.4-12.1) H 06/24/17 09:38 APTT 67.1 Seconds (26.0-36.0) H D 06/23/17 09:10 ABG pCO2 55 mmHg (35-45) H 06/23/17 17:10 ABG pO2 51 mmHg (85-104) L 06/23/17 17:10 ABG HCO3 37 mEq/L (21-27) H 06/23/17 17:10 ABG Total CO2 39.1 mEq/L (20-26) H 06/23/17 17:10 ABG O2 Saturation 87 % (95-98) L 06/23/17 17:10 ABG Base Excess 10.3 mEq/L (-2.0 to 3.0) H 06/23/17 17:10 Chloride 94 mEq/L (98-109) L 06/24/17 06:26 Carbon Dioxide 31 mEq/L (19-29) H 06/24/17 06:26 Glucose 162 mg/dL (70-99) H 06/24/17 06:26 POC Glucose 162 (58-89) H 06/23/17 20:14 Hemoglobin A1c 7.0 % (-5.6) H 06/23/17 16:58 HDL Cholesterol 19 mg/dL (40-59) L 06/23/17 07:03 Cholesterol/HDL Ratio 6.6 (0-4.9) H 06/23/17 07:03 - Diagnostic Findings Additional studies: Echocardiogram with elevated right-sided pressures without rachel ventricular dysfunction. - Clinical Findings Intake & Output: Intake & Output 06/23/17 06/24/17 06/24/17 23:59 07:59 15:59 Intake Total 340 / 340 100 / 100 Balance 340 / 340 100 / 100 Consult Discharge Plan - Plan Referrals: Carlitos Daniel MD [Primary Care Provider] - 07/17/17 10:00 am (Please follow up with your primary care provider)
[2017-06-25] MEDS: ceFAZolin 1,000 MG in D5% in Water (Mini-Bag+) 100 ML IVPB SCH ×3 (02:00→16:55)
[2017-06-25] MEDS: *HR* Rivaroxaban 15 MG TABLET PO SCH (05:39)
[2017-06-25] MEDS: Insulin LISPRO 300 UNITS/3 ML VIAL SQ SCH ×4 (08:35→21:01)
[2017-06-25] MEDS: Budesonide/Formoterol 160/4.5 MDI IH SCH ×2 (08:36→22:22)
[2017-06-25] MEDS: Furosemide 40 MG/4 ML VIAL IVP SCH ×2 (08:41→16:55)
[2017-06-25] MEDS: Folic Acid 1 MG TABLET PO SCH (08:41)
--- NOTE | 2017-06-25 10:19 | Internal Med Progress Note ---
<Edwin Riddle - Last Filed: 06/25/17 10:16> Date of Encounter: 06/25/17 Time of Encounter: 10:16 - Assessment and plan (1) Chronic respiratory failure with hypoxia Current Visit: Yes Status: Acute Assessment and plan: Related to underlying pulmonary hypertension, as well as obesity hypoventilation syndrome and likely DONYA. Patient is maintaining her saturation above 88% on 3 L. Patient tolerated CPAP well last night, given concern for OHS will qualify for BiPAP overnight. Likely DC tomorrow (2) Pulmonary hypertension Current Visit: Yes Status: Acute Assessment and plan: Evidence of dilated pulmonary artery on CT scan. Echo was unable to estimate RVSP, however the right ventricle was mildly moderately dilated. Cause unknown at this time. Likely related to obesity hypoventilation syndrome or DONYA. VQ scan this morning shows no evidence of chronic VTE disease. Discontinue xarelto. She will follow-up with pulmonology as an outpatient. Continue supplemental oxygen. Continue IV diuresis. (3) Obesity with alveolar hypoventilation Current Visit: Yes Status: Acute Assessment and plan: Tolerated CPAP well overnight, will qualify for BiPAP overnight The patient has been diagnosed with DONYA and has formal outpatient CPAP titration scheduled for next week. We will use CPAP with continuous O2 monitoring. Qualifiers: Obesity classification: adult class 3 (BMI >= 40) Serious obesity comorbidity presence: unspecified whether serious comorbidity present Body mass index: BMI 50.0-59.9 Qualified Code(s): E66.2 - Morbid (severe) obesity with alveolar hypoventilation; Z68.43 - Body mass index (BMI) 50-59.9 , adult (4) Polycythemia Current Visit: Yes Status: Acute Assessment and plan: Mild, stable, possibly caused by chronic hypoxia. Continue to monitor. (5) Cellulitis of leg Current Visit: Yes Status: Acute Assessment and plan: Bilateral. Likely component of edema as well. Continue Ancef. Qualifiers: Laterality: unspecified laterality Qualified Code(s): L03.119 - Cellulitis of unspecified part of limb (6) Hypothyroid Current Visit: Yes Status: Chronic Assessment and plan: Stable. Continue Synthroid. Qualifiers: Hypothyroidism type: acquired Qualified Code(s): E03.9 - Hypothyroidism, unspecified - Subjective Interval history: Patient seen and examined at bedside. She reports she is mildly short of breath but this is stable. She states the swelling in her legs is what is giving her the most difficultly, she feels it is slightly better today. She denies chest pain, cough. - Constitutional Vitals: Temp Pulse Resp BP Pulse Ox 97.4 F L 93 18 153/80 95 06/25/17 08:28 06/25/17 08:28 06/25/17 08:36 06/25/17 08:28 06/25/17 08:36 General appearance: Present: A&O X 3, morbidly obese, no acute distress, answers questions appropriately - Respiratory Respiratory exam: Present: decreased breath sounds. Absent: rales, rhonchi, wheezes - Cardiovascular Cardiovascular exam: Present: RRR. Absent: gallop, rubs, systolic murmur - GI/Abdominal GI/Abdominal exam: Present: normal bowel sounds, soft. Absent: distended, tenderness - Extremities Exam Extremities exam: Present: pedal edema (trace, improved), warm. Absent: tenderness Additional comments: Lower extremities have bilateral erythema from ankles to knees, unchanged from yesterday - Neurological Exam Neurological exam: Present: alert, CN II-XII intact, oriented X3, no focal deficits Internal Medicine: Result - Labs CBC & Chem 7: 06/24/17 06:26 06/24/17 06:26 - ABG Interpretation ABG results: ABG ABG pH 7.44 pH Units (7.32-7.45) 06/23/17 17:10 ABG pCO2 55 mmHg (35-45) H 06/23/17 17:10 ABG pO2 51 mmHg (85-104) L 06/23/17 17:10 ABG O2 Saturation 87 % (95-98) L 06/23/17 17:10 PT/INR, D-dimer PT 19.4 Seconds (9.4-12.1) H 06/24/17 09:38 - Impressions Impressions Echocardiogram 06/23/17 06:46 Impressions: LVEF 65%. Normal LV chamber size, wall thickness and function. Mild left ventricular diastolic dysfunction. Grossly, mild to moderately dilated right ventricle with normal function. Grossly, moderately dilated right atrium. Unable to estimate RVSP due to lack of TR jet. No obvious significant valvular dysfunction. Left Ventricular Wall Motion: Rest Echo Findings All wall segments showed normal motion. Findings: Study Quality * Technically sub-optimal due to body habitus. ECG Findings * Normal sinus rhythm. Left Ventricle * LVEF 65%. * Normal LV chamber size, wall thickness and function. * Mild left ventricular diastolic dysfunction. Right Ventricle * Grossly, mild to moderately dilated right ventricle with normal function. Left Atrium * Mildly dilated left atrium. Right Atrium * Grossly, moderately dilated right atrium. Interatrial Septum * Interatrial septum not well evaluated. Aortic Valve * Aortic valve not well visualized. * No aortic regurgitation. * No aortic stenosis. Mitral Valve * Normal mitral valve structure and function. * No mitral regurgitation. * No mitral stenosis. Tricuspid Valve * Normal tricuspid valve structure and function. * No tricuspid regurgitation. * Unable to estimate RVSP due to lack of TR jet. Pulmonic Valve * Pulmonic valve not well visualized. * No pulmonic regurgitation. Aorta * Normally sized aortic root. Pericardium * The pericardium appears normal. IVC * The IVC is not well evaluated. Pulmonary Artery * Normal visualized portions of the main pulmonary artery. Pulmonary Perfusion Imaging 06/24/17 16:41 IMPRESSION: Low probability for pulmonary embolism. No findings definitive for chronic pulmonary embolism. D/ / Darryl Nix MD / Darryl Nix MD Interpreting Provider: Darryl Nix MD Chest X-Ray 06/25/17 06:56 IMPRESSION: 1. Cardiomegaly. 2. Worsening atelectasis or infiltrate at the left base compared to prior x-ray of 06/22/2017. D/ / 06/25/2017 09:07:23 Caio Morales MD / earnold Interpreting Provider: Caio Morales MD Consult Discharge Plan - Plan Referrals: Edwin Riddle DO [Resident] - 07/07/17 2:30 pm <Catracho Armendariz - Last Filed: 06/25/17 18:16> Date of Encounter: 06/25/17 - Constitutional Vitals: Temp Pulse Resp BP Pulse Ox 98.5 F 93 18 145/81 93 06/25/17 15:53 06/25/17 15:53 06/25/17 15:53 06/25/17 15:53 06/25/17 15:53 Internal Medicine: Result - Labs CBC & Chem 7: 06/25/17 09:42 06/25/17 09:42 Labs: Short CBC 06/25/17 Range/Units 09:42 WBC 5.2 (4.3-11.1) K/mcL Hgb 16.9 H (11.5-15.4) g/dL Hct 55.5 H (35.3-44.9) % Plt Count 103 L (140-400) K/mcL Neutrophils # 3.7 (1.6-8.9) K/mcL BMP 06/25/17 09:42 Sodium 135 L Potassium 3.6 Chloride 91 L Carbon Dioxide 34 H BUN 7 Creatinine 0.67 Glucose 223 H Calcium 8.6 - ABG Interpretation ABG results: ABG ABG pH 7.44 pH Units (7.32-7.45) 06/23/17 17:10 ABG pCO2 55 mmHg (35-45) H 06/23/17 17:10 ABG pO2 51 mmHg (85-104) L 06/23/17 17:10 ABG O2 Saturation 87 % (95-98) L 06/23/17 17:10 PT/INR, D-dimer PT 16.9 Seconds (9.4-12.1) H 06/25/17 11:50 - Impressions Impressions Pulmonary Perfusion Imaging 06/24/17 16:41 IMPRESSION: Low probability for pulmonary embolism. No findings definitive for chronic pulmonary embolism. D/ / Darryl Nix MD / Darryl Nix MD Interpreting Provider: Darryl Nix MD Chest X-Ray 06/25/17 06:56 IMPRESSION: 1. Cardiomegaly. 2. Worsening atelectasis or infiltrate at the left base compared to prior x-ray of 06/22/2017. D/ / 06/25/2017 09:07:23 Caio Morales MD / earnold Interpreting Provider: Caio Morales MD - Attending Attestation I examined this patient and my medical decision-making was reviewed with the Resident Physician. I agree with the documented findings, disposition and treatment plan as described except to the extent set forth below. Pulmonary input appreciated.
[2017-06-25 10:22] LABS: Basophils % 0.6 %; Eosinophils # 0.2 K/mcL (0.0-0.6); Eosinophils % 4.2 %; Hematocrit 55.5 % (35.3-44.9); Hemoglobin 16.9 g/dL (11.5-15.4); Immature Granulocytes % 0.6 % (0-4); Lymphocytes # 0.9 K/mcL (0.6-4.6); Lymphocytes % 16.3 %; Mean Corpuscular HGB Conc 30.5 g/dL (31.6-35.5); Mean Corpuscular Hemoglobin 27.3 pg (28.0-33.3); Mean Corpuscular Volume 89.7 fL (83.0-100.0); Mean Platelet Volume 9.8 fL (9.4-12.4); Monocytes # 0.3 K/mcL (0.0-1.3); Monocytes % 6.3 %; Neutrophils # 3.7 K/mcL (1.6-8.9); Platelet Count 103 K/mcL (140-400); Red Blood Count 6.19 M/mcL (3.82-4.97); Red Cell Distribution Width 18.6 % (11.5-14.5)
[2017-06-25 10:39] LABS: BUN/Creatinine Ratio 10 (6-26); Blood Urea Nitrogen 7 mg/dL (7-20); Calcium 8.6 mg/dL (8.6-10.8); Carbon Dioxide 34 mEq/L (19-29); Chloride 91 mEq/L (98-109); Glucose 223 mg/dL (70-99); Magnesium 1.5 mg/dL (1.6-2.6); Osmolality,Calculated 285 (280-300); Potassium 3.6 mEq/L (3.5-4.5); Sodium 135 mEq/L (136-145); eGFR For African Americans > 60 (> 60); eGFR For Non-African Americans > 60 (> 60)
[2017-06-25 12:02] LABS: INR 1.6; Prothrombin Time 16.9 Seconds (9.4-12.1)
--- NOTE | 2017-06-25 12:06 | Event Note ---
Date of Encounter: 06/25/17 Time of Encounter: 12:04 Ventilation perfusion test low probability for acute or chronic thromboembolic disease. She wore CPAP overnight with some improvement overall in symptomatology and from what I can gather also helped with her oxygenation which was noted to drop into the 70s at various points. She will need to be discharged with supplemental oxygen to keep saturation greater than 88% at all time she can also be qualified for positive airway pressure and she can use empiric settings until formal polysomnogram with PAP titration can be completed next week. She will also need follow-up as outlined with pulmonary clinic for ongoing respiratory/sleep disordered breathing evaluation and monitoring. Pulmonary we will sign off please do not hesitate to call us with any questions I discussed the plan of care directly with the housestaff Dr. Ross.
[2017-06-25] MEDS ORDERED: Magnesium Sulfate 2 GM in D5% in Water 100 ML IVPB ONE (13:25)
[2017-06-26] MEDS: ceFAZolin 1,000 MG in D5% in Water (Mini-Bag+) 100 ML IVPB SCH ×2 (02:21→10:22)
[2017-06-26] MEDS ORDERED: *HR* Enoxaparin 40 MG/0.4 ML SYRINGE SQ SCH (06:00)
[2017-06-26 06:17] LABS: BUN/Creatinine Ratio 9 (6-26); Blood Urea Nitrogen 6 mg/dL (7-20); Calcium 8.3 mg/dL (8.6-10.8); Carbon Dioxide 39 mEq/L (19-29); Chloride 91 mEq/L (98-109); Glucose 164 mg/dL (70-99); Osmolality,Calculated 283 (280-300); Sodium 136 mEq/L (136-145); eGFR For African Americans > 60 (> 60); eGFR For Non-African Americans > 60 (> 60)
[2017-06-26 06:25] LABS: Potassium 3.6 mEq/L (3.5-4.5)
[2017-06-26] MEDS: Furosemide 40 MG/4 ML VIAL IVP SCH (08:23)
[2017-06-26] MEDS: Insulin LISPRO 300 UNITS/3 ML VIAL SQ SCH ×2 (08:23→12:14)
[2017-06-26] MEDS: Folic Acid 1 MG TABLET PO SCH (08:24)
--- NOTE | 2017-06-26 08:30 | Discharge Summary ---
Addendum entered and electronically signed by Edwin Riddle DO 06/26/17 09:45: Please note there is an error in the discharge summary, the following is the accurate information: patient completed a BiPAP qualification study and DID qualify for BiPAP at home. It was incorrectly stated that the patient did not qualify. Also, patient was give rx for diabetic testing supplies and instructed to test her blood sugars once a day. Original Note: <Edwin Riddle - Last Filed: 06/26/17 08:41> Date of Encounter: 06/26/17 Time of Encounter: 08:28 - Discharge Diagnosis (1) Chronic respiratory failure with hypoxia Priority: Primary Status: Chronic (2) Pulmonary hypertension Priority: Primary Status: Chronic (3) Obesity with alveolar hypoventilation Priority: Primary Status: Chronic Qualifiers: Obesity classification: adult class 3 (BMI >= 40) Serious obesity comorbidity presence: unspecified whether serious comorbidity present Body mass index: BMI 50.0-59.9 Qualified Code(s): E66.2 - Morbid (severe) obesity with alveolar hypoventilation; Z68.43 - Body mass index (BMI) 50-59.9 , adult (4) Polycythemia Priority: Primary Status: Chronic (5) Cellulitis of leg Priority: Primary Status: Acute Qualifiers: Laterality: unspecified laterality Qualified Code(s): L03.119 - Cellulitis of unspecified part of limb (6) Hypothyroid Priority: Secondary Status: Chronic Qualifiers: Hypothyroidism type: acquired Qualified Code(s): E03.9 - Hypothyroidism, unspecified - Discharge Medications Prescriptions: cephALEXin [Keflex] 500 mg PO BID #12 capsule metFORMIN [Glucophage] 500 mg PO BIDWM #60 tablet Home Medications: Albuterol Sulfate [Ventolin Hfa] 1 puff IH Q6H PRN 06/23/17 [History] Biotin 5,000 mcg PO DAILY 06/23/17 [History] Ergocalciferol (VITAMIN D2) [Vitamin D2] 50,000 unit PO QWEEK 06/23/17 [History] Ferrous Sulfate [Iron] 325 mg PO TID 06/23/17 [History] Fluticasone/Vilanterol [Breo Ellipta 200-25 Mcg INH] 1 puff IH DAILY 06/23/17 [ History] Folic Acid 400 mcg PO DAILY 06/23/17 [History] Furosemide [Lasix] 40 mg PO DAILY 06/23/17 [History] Levothyroxine Sodium [Synthroid] 200 mcg PO DAILY 06/23/17 [History] Multivitamin [One Daily Essential] PO DAILY 06/23/17 [History] cephALEXin [Keflex] 500 mg PO BID #12 capsule 06/26/17 [Rx] metFORMIN [Glucophage] 500 mg PO BIDWM #60 tablet 06/26/17 [Rx] Allergies/Adverse Reactions: 3 Allergy/AdvReac Type Severity Reaction Status Date / Time codeine AdvReac See Verified 06/22/17 16:28 Comments Procedures/tests Complete & Pending: Procedures Performed prior 72 hours Category Date Time Status VQ Scan [NM pul vent and perfuse] [NM] Routine Exams 06/24/17 16:41 Completed Date of admission: 06/22/17 23:00 Primary care physician: Carlitos Daniel, Consults: 06/23/17 15:47 Consult to Pulmonology [CONS] Routine Consulting Provider: [facility] Reason for Consult: Acute vs Chronic PE..DONYA.. Call Completed: Yes 06/24/17 08:46 Consult to Physical Therapy [CONS] Routine Comment: Evaluate, develop and implement POC Reason for Consult: Difficulty walking Discharging clinician: Edwin Riddle Anticipated date of discharge: 06/26/17 - Patient Status Disposition: Home, Self-Care Condition: Good Functional capacity at discharge: independent ambulation Overall status at discharge: patient is progressing back to baseline - Discharge Instructions Instructions: Pulmonary Embolism (DC), Cellulitis (DC) Follow Up With: Joseline Diaz MD [Partnered Physician] - 07/22/17 9:15 am (This physcian is in with Dr. Sow) Edwin Riddle DO [Resident] - 07/07/17 2:30 pm Additional Instructions: Please follow-up with your PCP as scheduled. Please follow-up with pulmonology as scheduled. Please complete your CPAP titration study as scheduled on Thursday. Please resume your home medications. Please start metformin twice a day. Please take your antibiotic twice a day until completed. Please use your BiPAP machine nightly. Please return for any new or worsening symptoms. - Diet and Activity Activity: increase activity as tolerated Diet: low salt diet Interval History: Patient seen and examined at bedside. Patient states that she feels pretty good. She states the breathing machine that she wears at night seems to work well for her.She states her legs continued to improve. She has chills, chest pain, shortness of breath, cough, congestion Hospital course: Ms. López is a 41 year old female with history of morbid obesity, hypothyroidism presented with shortness of breath. Patient had a CTA which was negative for PE but did show enlarged pulmonary artery. Echo was done that was unable to estimate the right ventricular systolic pressure but did show a mildly dilated right ventricle concerning for pulmonary hypertension. The patient was seen by pulmonology who recommended she be placed on CPAP here in complete her formal CPAP titration scheduled for next Thursday. Patient was also offered for BiPAP which she did not qualify for such she will be sent home with BiPAP. Patient will be encouraged to continue with her CPAP titration as scheduled. Patient was also noted to have bilateral lower extremity swelling with significant erythema and warmth. This is likely related to a combination of lower extremity edema and cellulitis. Patient was treated with Ancef and diuresis and responded well. Patient will be discharged home on by mouth Lasix and complete a ten-day course of antibiotics for cellulitis. Patient will be discharged home in stable condition. - Time Spent with Patient Total time spent providing and/or coordinating discharge services: - Constitutional Vitals: Temp Pulse Resp BP Pulse Ox 98.0 F 95 21 161/100 92 06/26/17 07:05 06/26/17 07:05 06/26/17 07:05 06/26/17 07:05 06/26/17 07:05 General appearance: Present: A&O X 3, morbidly obese, no acute distress, answers questions appropriately - Respiratory Respiratory exam: Present: decreased breath sounds. Absent: rales, rhonchi, wheezes - Cardiovascular Cardiovascular exam: Present: RRR. Absent: gallop, rubs, systolic murmur - GI/Abdominal GI/Abdominal exam: Present: normal bowel sounds, soft. Absent: distended, tenderness - Extremities Exam Extremities exam: Present: pedal edema (trace, improved), warm. Absent: tenderness - Neurological Exam Neurological exam: Present: alert, CN II-XII intact, oriented X3, no focal deficits <Kala,Catracho P - Last Filed: 06/26/17 17:15> Date of Encounter: 06/26/17 Procedures/tests Complete & Pending: Procedures Performed prior 72 hours Category Date Time Status VQ Scan [NM pul vent and perfuse] [NM] Routine Exams 06/24/17 16:41 Completed Date of admission: 06/22/17 23:00 Primary care physician: Carlitos Daniel, Consults: 06/23/17 15:47 Consult to Pulmonology [CONS] Routine Consulting Provider: [facility] Reason for Consult: Acute vs Chronic PE..DONYA.. Call Completed: Yes 06/24/17 08:46 Consult to Physical Therapy [CONS] Routine Comment: Evaluate, develop and implement POC Reason for Consult: Difficulty walking Hospital course: Ms. López is a 41 year old female - Time Spent with Patient Total time spent providing and/or coordinating discharge services: - Constitutional Vitals: Temp Pulse Resp BP Pulse Ox 98.2 F 99 19 146/84 92 06/26/17 10:53 06/26/17 10:53 06/26/17 10:53 06/26/17 10:53 06/26/17 10:53 - Attending Attestation I examined this patient and my medical decision-making was reviewed with the Resident Physician. I agree with the documented findings, disposition and treatment plan as described except to the extent set forth below.
[2017-06-26] MEDS: Budesonide/Formoterol 160/4.5 MDI IH SCH (10:45)
[2017-06-26 10:58] VITALS: BP 146/84
== END 2017-06-26 14:05 | disposition home or self-care (01) ==
LOC: 2ANU 15:34 → EMEROO 15:34 → 2ANU 23:58
PROVIDERS: ADMIT Family Medicine; ATTEND Internal Medicine